=== PATIENT | male | born 1955 | race Hispanic/Latino ===

== ENCOUNTER 2023-10-03 08:07 | Observation (INO) | payer BC ==
[~2023-10-03 08:07] MED LIST: AMLODIPINE BESY10 MG PO; MAGNESIUM OXID400 MG PO; NAPROXEN250 MG PO; ROPIVACAINE 246.25 MG, EPINEPHRINE HCL 1:1000 1ML 0.5 MG, CLONIDINE HCL 0.08 MG, KETORO... INJ ONE; SODIUM CHLORIDE 0.9% 500ML 500 ML ONE; TRANEXAMIC ACID 20 ML ONE; Vancomycin IV 1,000 MG ONE
[2023-10-03] MEDS ORDERED: CELECOXIB 200 MG CAP ONE (08:43)
[2023-10-03] MEDS ORDERED: DEXAMETHASONE SOD PHOS 10 MG/1 ML VIAL ONE (08:44)
[2023-10-03] MEDS ORDERED: GABAPENTIN 300 MG CAP ONE (08:44)
[2023-10-03] MEDS ORDERED: LACTATED RINGER'S 1,000 ML ONE (08:44)
[2023-10-03] MEDS ORDERED: CEFAZOLIN SODIUM 2 GM ONE (08:44)
[2023-10-03] MEDS ORDERED: HYDROCODONE/APAP 5MG-325MG TAB PO PRN (12:15)
[2023-10-03] MEDS ORDERED: SODIUM CHLORIDE 0.9% 1000ML 1,000 ML IV SCH (12:15)
[2023-10-03] MEDS ORDERED: HYDROCODONE/APAP 7.5MG-325MG 1 EA TAB PO PRN (12:15)
[2023-10-03] MEDS ORDERED: DOCUSATE SODIUM 100 MG CAP PO PRN (12:15)
[2023-10-03] MEDS ORDERED: ONDANSETRON HCL INJ 2MG/ML 2ML 2 MG/ML VIAL IV PRN (12:15)
[2023-10-03] MEDS ORDERED: DIPHENHYDRAMINE HCL INJ 50 MG/ML VIAL IV PRN (12:15)
[2023-10-03 12:17] VITALS: TEMP 97
[2023-10-03] MEDS ORDERED: FENTANYL CITRATE/PF 100MCG/2 ML INJ IV ONE ×4 (12:40→13:00)
[2023-10-03] MEDS ORDERED: FENTANYL CITRATE/PF 100MCG/2 ML INJ ONE (12:41)
[2023-10-03] MEDS ORDERED: HYDROMORPHONE 1MG/1ML INJ IV ONE ×3 (13:08→13:20)
[2023-10-03] MEDS ORDERED: HYDROMORPHONE 1MG/1ML INJ ONE (13:08)
[2023-10-03] MEDS ORDERED: HYDROCODONE/APAP 7.5MG-325MG 1 EA TAB ONE (14:15)
[2023-10-03] MEDS ORDERED: ASPIRIN81 MG PO (14:52)
[2023-10-03 15:00] VITALS: BP 123/84; PULSE 82; RESP 14; O2SAT 97
[2023-10-03] MEDS ORDERED: ASPIRIN 325 MG TAB PO SCH (17:00)
[2023-10-03] MEDS ORDERED: CELECOXIB 100 MG CAP PO SCH (17:00)
[2023-10-04] MEDS ORDERED: ACETAMINOPHEN 1000 MG/100 ML IV PRN (12:15)
== END 2023-10-03 15:20 | disposition home health service (06) ==
LOC: OR 08:07 → PACU V 12:05
PROVIDERS: ADMIT Specialist; ATTEND Specialist
DX: M17.11 Unilateral primary osteoarthritis, right knee (principal); I10 Essential (primary) hypertension; K21.9 Gastro-esophageal reflux disease without esophagitis; E66.9 Obesity, unspecified; Z68.28 Body mass index [BMI] 28.0-28.9, adult; Z71.82 Exercise counseling; Z01.812 Encounter for preprocedural laboratory examination; Z79.1 Long term (current) use of non-steroidal anti-inflammatories (NSAID); Z79.82 Long term (current) use of aspirin; Z79.899 Other long term (current) drug therapy
CPT/HCPCS: 27447; 71046; 73560; 86850; 86900; 97116; 97161; 97530; C1713 ×2; C1776 ×3; G0378; J0171; J0690; J1100; J1170; J1885; J2795; J3010; J3370; J7040; J7121

== ENCOUNTER → 2024-01-03 | Outpatient (RCR) | payer BC ==
[~2024-01-03] MED LIST changes: +ASPIRIN81 MG PO; -ROPIVACAINE 246.25 MG, EPINEPHRINE HCL 1:1000 1ML 0.5 MG, CLONIDINE HCL 0.08 MG, KETORO... INJ ONE; -SODIUM CHLORIDE 0.9% 500ML 500 ML ONE; -TRANEXAMIC ACID 20 ML ONE; -Vancomycin IV 1,000 MG ONE
== END ==
LOC: PT 12-05 16:10
PROVIDERS: ATTEND Physician Assistant
DX: Z47.1 Aftercare following joint replacement surgery (principal); Z96.651 Presence of right artificial knee joint; M62.81 Muscle weakness (generalized); R26.2 Difficulty in walking, not elsewhere classified; M25.561 Pain in right knee; M25.661 Stiffness of right knee, not elsewhere classified